=== PATIENT | male | born 1985 | race Hispanic/Latino ===

== ENCOUNTER 2018-09-19 22:23 | Emergency (ER) | payer SELFPAY ==
[2018-09-19] MEDS ORDERED: DEXAMETHASONE 10 MG/ML VIAL ONE (23:33)
--- NOTE | 2018-09-19 23:38 | EDPHYS ---
Physician Documentation [facility] Name: Josh Linda Age: 33 yrs Sex: Male : 1985 Arrival Date: 09/19/2018 Time: 22:26 Bed 30 Private MD: ED Physician Oneal Jacobsen HPI: 09/19 23:09 This 33 yrs old Male presents to ER via Ambulatory with complaints of Rash - jmm poison mo. 23:09 The patient's rash thought to be caused by Dermatitis. The rash is located on the jmm chest, abdomen, right arm and left arm. Onset: The symptoms/episode began/occurred 1 week(s) ago. Associated signs and symptoms: Pertinent positives: itching, Pertinent negatives: difficulty breathing, fever, swelling of lips, swelling of throat, swelling of tongue, vomiting. Treatment given at home: OTC lotion/cream. The patient has not experienced similar symptoms in the past. Historical: - Allergies: 22:41 No Known Allergies; rv - Home Meds: 22:41 None [Active]; rv - PMHx: 22:41 None; rv - PSHx: 22:41 None; rv - Immunization history:: Adult Immunizations up to date. - Social history:: Smoking status: Patient/guardian denies using tobacco, never smoked. - Ebola Screening: : No symptoms or risks identified at this time. ROS: 23:09 Constitutional: Negative for fever, chills, and weight loss, Cardiovascular: Negative jmm for chest pain, palpitations, and edema, Respiratory: Negative for shortness of breath, cough, wheezing, and pleuritic chest pain, Abdomen/GI: Negative for abdominal pain, nausea, vomiting, diarrhea, and constipation. 23:09 Skin: Positive for rash. 23:09 All other systems are negative. Exam: 23:09 Constitutional: This is a well developed, well nourished patient who is awake, alert, jmm and in no acute distress. Head/Face: atraumatic. Eyes: EOMI, no conjunctival erythema appreciated ENT: Moist Mucus Membranes Neck: Trachea midline, Supple Chest/axilla: Normal chest wall appearance and motion. Cardiovascular: Regular rate and rhythm. No edema appreciated Respiratory: Normal respirations, no respiratory distress appreciated Abdomen/GI: Non distended, soft Back: Normal ROM 23:09 Skin: rash consistent with dermatitis noted to the right and left arm and abdomen. 23:09 Neuro: Orientation: is normal, Mentation: is normal, Memory: is normal. 23:09 Psych: Behavior/mood is pleasant, cooperative. Vital Signs: 22:43 BP 135 / 78; Pulse 94; Resp 16; Temp 98.8; Pulse Ox 98% ; Weight 90.72 kg; rv 23:45 BP 122 / 69; Pulse 88; Resp 17 S; Temp 98.5(O); Pulse Ox 99% on R/A; ca1 MDM: 23:08 Patient medically screened. [facility] 23:34 Data reviewed: vital signs, nurses notes. Counseling: I had a detailed discussion with sav the patient and/or guardian regarding: the historical points, exam findings, and any diagnostic results supporting the discharge/admit diagnosis, the need for outpatient follow up, to return to the emergency department if symptoms worsen or persist or if there are any questions or concerns that arise at home. ED course: PE findings appear consistent with contact dermatitis. patient prescribed oral steriods and advised to follow up with pcp. patient was given return precautions. family understood and agrees with the plan of care. . Administered Medications: 23:20 Drug: Dexamethasone 10 mg Route: IM; Site: right deltoid; ca1 23:45 Follow up: Response: No adverse reaction; Marked relief of symptoms ca1 Disposition: 09/19/18 23:37 Discharged to Home. Impression: Contact Dermatitis. - Condition is Stable. - Discharge Instructions: Contact Dermatitis. - Prescriptions for Prednisone 20 mg Oral Tablet - take 3 tablets by ORAL route once daily for 12 days take 3 tabs by mouth daily for 3 days, then take 2 tablets by mouth daily for 3 days, then take 1 tablet by mouth daily for 3 days, then take 1/2 table by mouth daily for 3 days.; 20 tablet. Hydroxyzine HCl 25 mg Oral Tablet - take 1 tablet by ORAL route every 6 hours As needed; 30 tablet. - Medication Reconciliation Form, Thank You Letter, Antibiotic Education, Prescription Opioid Use form. - Follow up: Private Physician; When: 2 - 3 days; Reason: Recheck today's complaints, Continuance of care, Re-evaluation by your physician. Addendum: 09/23/2018 16:37 Co-signature as Attending Physician, Oneal Jacobsen MD I agree with the assessment and t w4 plan of care. Signatures: Austin Woodall PA PA jmm Wadley, Terrence, MD MD tw4 Ye Tavarez, RN RN rv Yu Looney RN RN ca1 Corrections: (The following items were deleted from the chart) 09/19 23:46 23:37 09/19/2018 23:37 Discharged to Home. Impression: Contact Dermatitis. Condition is ca1 Stable. Forms are Medication Reconciliation Form, Thank You Letter, Antibiotic Education, Prescription Opioid Use. Follow up: Private Physician; When: 2 - 3 days; Reason: Recheck today's complaints, Continuance of care, Re-evaluation by your physician. sav
--- NOTE | 2018-09-19 23:38 | ER ---
Nurse's Notes [facility] Name: Josh Linda Age: 33 yrs Sex: Male : 1985 Arrival Date: 09/19/2018 Time: 22:26 Bed 30 Private MD: Diagnosis: Contact Dermatitis Presentation: 09/19 22:38 Presenting complaint: Patient states: HAD EXPOSURE TO POISON BOB AND HAVE THE RASHES rv FOR A WEEK. TRIED TO PUT CREAM AND BENADRYL. DID NOT GET BETTER. Transition of care: patient was not received from another setting of care. Onset of symptoms was September 13, 2018 at 08:00. Risk Assessment: Do you want to hurt yourself or someone else? Patient reports no desire to harm self or others. Initial Sepsis Screen: Does the patient meet any 2 criteria? No. Patient's initial sepsis screen is negative. Does the patient have a suspected source of infection? No. Patient's initial sepsis screen is negative. Care prior to arrival: None. 22:38 Method Of Arrival: Ambulatory rv 22:38 Acuity: MAYANK 4 rv Historical: - Allergies: 22:41 No Known Allergies; rv - Home Meds: 22:41 None [Active]; rv - PMHx: 22:41 None; rv - PSHx: 22:41 None; rv - Immunization history:: Adult Immunizations up to date. - Social history:: Smoking status: Patient/guardian denies using tobacco, never smoked. - Ebola Screening: : No symptoms or risks identified at this time. Screenin:46 Abuse screen: Denies threats or abuse. Denies injuries from another. Nutritional rv screening: No deficits noted. Tuberculosis screening: No symptoms or risk factors identified. Fall Risk None identified. Assessment: 22:45 General: Appears in no apparent distress. comfortable, Behavior is calm, cooperative. rv Pain: Denies pain. Neuro: Level of Consciousness is awake, alert, obeys commands, Oriented to person, place, time, situation. Cardiovascular: Patient's skin is warm and dry. Respiratory: Airway is patent. GI: No signs and/or symptoms were reported involving the gastrointestinal system. : No signs and/or symptoms were reported regarding the genitourinary system. EENT: No signs and/or symptoms were reported regarding the EENT system. Derm: Rash noted that is itchy, red, raised, on neck, chest, abdomen, right arm and left arm. Musculoskeletal: No signs and/or symptoms reported regarding the musculoskeletal system. 23:45 Reassessment: Patient appears in no apparent distress at this time. Patient is alert, ca1 oriented x 3, equal unlabored respirations, skin warm/dry/pink. Patient states feeling better. Vital Signs: 22:43 BP 135 / 78; Pulse 94; Resp 16; Temp 98.8; Pulse Ox 98% ; Weight 90.72 kg; rv 23:45 BP 122 / 69; Pulse 88; Resp 17 S; Temp 98.5(O); Pulse Ox 99% on R/A; ca1 ED Course: 22:26 Patient arrived in ED. ag3 22:37 Ye Tavarez, MICHELE is Primary Nurse. rv 22:40 Triage completed. rv 22:40 Austin Woodall PA is PHCP. [facility] 22:40 Oneal Jacobsen MD is Attending Physician. [facility] 22:46 Patient has correct armband on for positive identification. Bed in low position. Call rv light in reach. Side rails up X 1. Pulse ox on. NIBP on. 22:46 Patient placed in an exam room, on a stretcher, on pulse oximetry, Patient notified of rv wait time. 22:47 No provider procedures requiring assistance completed. rv 23:45 Patient did not have IV access during this emergency room visit. ca1 Administered Medications: 23:20 Drug: Dexamethasone 10 mg Route: IM; Site: right deltoid; ca1 23:45 Follow up: Response: No adverse reaction; Marked relief of symptoms ca1 Outcome: 23:37 Discharge ordered by . [facility] 23:45 Discharged to home ambulatory, with family. ca1 23:45 Condition: stable 23:45 Discharge instructions given to patient, significant other, Instructed on discharge instructions, follow up and referral plans. medication usage, Demonstrated understanding of instructions, follow-up care, medications, Prescriptions given X 2. 23:46 Patient left the ED. ca1 Signatures: Austin Woodall PA PA jmm Vicente, Ronaldo, MICHELE BAUTISTA Krissy Gonzalez 3 Yu Looney RN RN [facility]
== END 2018-09-19 23:46 | disposition home or self-care (01) ==
LOC: ER 22:23
DX: L25.9 Unspecified contact dermatitis, unspecified cause (principal)
CPT/HCPCS: 96372; 99283; J1100

== ENCOUNTER 2020-10-21 20:37 | Emergency (ER) | payer SELFPAY ==
--- NOTE | 2020-10-21 22:14 | RAD REPORT ---
EXAM DESCRIPTION: Sd Fleming (2 Views)10/21/2020 9:58 pm CLINICAL HISTORY: Chest pain COMPARISON: None FINDINGS: The lungs appear clear of acute infiltrate. The heart is normal size IMPRESSION: No acute abnormalities displayed
[2020-10-21] MEDS ORDERED: MORPHINE 4 MG/ML SYR ONE (23:10)
[2020-10-21] MEDS ORDERED: ONDANSETRON 4 MG/2 ML VIAL ONE (23:11)
[2020-10-21 23:32] LABS: Protime INR 1.04
[2020-10-21 23:33] LABS: Absolute Lymphocytes (CBC) 2.5 K/uL (0.7-4.9); Basophils % 0.2 % (0-1.3); Hematocrit 41.5 % (39.6-49.0); Lymphocytes % 29.2 % (15.3-44.8); MPV 9.3 fL (7.6-11.3); RBC Red Blood Cell Count 4.64 M/uL (4.33-5.43)
[2020-10-21 23:39] LABS: ALT/SGPT 273 U/L (12-78); AST/SGOT 120 U/L (15-37); Albumin 4.4 g/dL (3.4-5.0); Alkaline Phosphatase 97 U/L (45-117); BUN Blood Urea Nitrogen 13 mg/dL (7-18); Bicarbonate 26 mmol/L (21-32); Bilirubin Direct 0.1 mg/dL (0-0.2); Bilirubin Total 0.4 mg/dL (0.2-1.0); Glucose Level 96 mg/dL (74-106); Potassium 3.9 mmol/L (3.5-5.1); Sodium Level 139 mmol/L (136-145)
[2020-10-21] MEDS ORDERED: IPRATROPIUM BROM 0.5MG/2.5ML ONE (23:39)
[2020-10-21] MEDS ORDERED: ALBUTEROL 2.5 MG/3 ML NEB SOL ONE (23:39)
--- NOTE | 2020-10-22 02:45 | ER ---
Nurse's Notes [facility] Name: Josh Linda Age: 35 yrs Sex: Male : 1985 Arrival Date: 10/21/2020 Time: 20:42 Bed 5 Private MD: Diagnosis: Fall-Mechanical, from height;Chest Contusion;Abdominal Contusion Presentation: 10/21 20:49 Chief complaint: Patient states: Pt stated on 10/19/20, fell off the roof of [facility] a one story house. Pt stated fell into a hole onto the Left side of the ribs. Pt also c/o difficulty breathing. Coronavirus screen: Client denies travel out of the [place] in the last 14 days. Ebola Screen: Patient negative for fever greater than or equal to 101.5 degrees Fahrenheit, and additional compatible Ebola Virus Disease symptoms. Initial Sepsis Screen: Does the patient meet any 2 criteria? No. Patient's initial sepsis screen is negative. Does the patient have a suspected source of infection? No. Patient's initial sepsis screen is negative. Risk Assessment: Do you want to hurt yourself or someone else? Patient reports no desire to harm self or others. Onset of symptoms was October 19, 2020. 20:49 Method Of Arrival: Ambulatory [facility] 20:49 Acuity: MAYANK 3 1 Triage Assessment: 20:51 General: Appears in no apparent distress. uncomfortable, Behavior is calm, cooperative. vg1 Pain: Complains of pain in left lateral anterior chest Pain currently is 10 out of 10 on a pain scale. 20:51 Respiratory: Breath sounds are diminished in right posterior middle lobe. vg1 Historical: - Allergies: 20:51 No Known Allergies; vg1 - Home Meds: 20:51 None [Active]; vg1 - PMHx: 20:51 None; vg1 - Immunization history:: Adult Immunizations up to date. - Social history:: Smoking status: Patient denies any tobacco usage or history of. Screenin:28 Abuse screen: Denies threats or abuse. Denies injuries from another. Nutritional rr5 screening: No deficits noted. Tuberculosis screening: No symptoms or risk factors identified. Fall Risk Fall in past 12 months (25 points). Total Sahni Fall Scale indicates Low Risk Score (25-44 pts). Fall prevention measures have been instituted. Side Rails Up X 2 Frequent Obs/Assesments occuring Family Present and informed to notify staff if they need to leave bedside As available Patient and Family Educated on Fall Prevention Program and strategies. Assessment: 21:28 General: Appears in no apparent distress. uncomfortable, Behavior is calm, cooperative, rr5 appropriate for age. Pain: Complains of pain in left lateral anterior chest Pain currently is 10 out of 10 on a pain scale. Quality of pain is described as aching, Pain began suddenly, Is intermittent. Neuro: Level of Consciousness is awake, alert, obeys commands, Oriented to person, place, time. Cardiovascular: Capillary refill < 3 seconds Patient's skin is warm and dry. Respiratory: Airway is patent Respiratory effort is even, unlabored, Respiratory pattern is regular, symmetrical. Derm: Skin is intact, is healthy with good turgor, Skin temperature is warm. Musculoskeletal: Circulation, motion, and sensation intact. Reports pain in left lateral anterior chest. 22:27 Reassessment: Patient and/or family updated on plan of care and expected duration. Pain ak2 level reassessed. 23:30 Reassessment: Patient appears in no apparent distress at this time. Patient is alert, rr5 oriented x 3, equal unlabored respirations, skin warm/dry/pink. 10/22 00:20 Reassessment: Patient appears in no apparent distress at this time. Patient is alert, rr5 oriented x 3, equal unlabored respirations, skin warm/dry/pink. for review by ED provider. 01:09 Reassessment: Patient appears in no apparent distress at this time. Patient is alert, rr5 oriented x 3, equal unlabored respirations, skin warm/dry/pink. awaiting for CT result Patient states feeling better. Patient states symptoms have improved. 02:44 Reassessment: awaiting for ED provider re evaluation. rr5 02:51 Reassessment: Patient appears in no apparent distress at this time. Patient is alert, rr5 oriented x 3, equal unlabored respirations, skin warm/dry/pink. discharge instruction given and explained without complaints made. Vital Signs: 10/21 20:49 BP 178 / 109; Pulse 90; Resp 18; Temp 99.0(O); Pulse Ox 99% ; Weight 88.45 kg; Height 6 vg1 ft. 2 in. (187.96 cm); Pain 10/10; 22:27 BP 143 / 84; Pulse 71; Resp 16; Pulse Ox 98% on R/A; ak2 23:30 BP 141 / 89; Pulse 79; Resp 15; Pulse Ox 99% ; rr5 07 00:20 BP 132 / 80; Pulse 70; Resp 19; Pulse Ox 98% ; rr5 01:50 BP 126 / 80; Pulse 76; Resp 19; Pulse Ox 98% ; rr5 10/21 20:49 Body Mass Index 25.04 (88.45 kg, 187.96 cm) vg1 ED Course: 10/21 20:42 Patient arrived in ED. es 20:51 Triage completed. vg1 20:51 Arm band placed on Patient placed Patient notified of wait time. vg1 21:09 Yovanny Aguilar, RN is Primary Nurse. rr5 21:29 Patient has correct armband on for positive identification. Bed in low position. Call rr5 light in reach. Pulse ox on. NIBP on. 21:46 Hernandez Clark MD is Attending Physician. mh7 21:57 Chest Pa And Lat (2 Views) XRAY In Process Unspecified. EDMS 10/22 00:00 Inserted saline lock: 20 gauge in right upper arm, using aseptic technique. Blood rr5 collected. 00:07 CT Chest, Abdomen, Pelvis - W/Contrast In Process Unspecified. EDMS 01:50 Awaiting re-evaluation by ER provider. rr5 02:52 No provider procedures requiring assistance completed. IV discontinued, intact, rr5 bleeding controlled, No redness/swelling at site. Pressure dressing applied. Administered Medications: 10/21 23:28 Drug: Zofran (Ondansetron) 4 mg Route: IVP; Site: right antecubital; ak2 10/22 00:20 Follow up: Response: No adverse reaction rr5 10/21 23:29 Drug: morphine 4 mg Route: IVP; Site: right antecubital; ak2 10/22 00:20 Follow up: Response: No adverse reaction; Pain is decreased; RASS: Alert and Calm (0) rr5 Outcome: 02:45 Discharge ordered by . mh7 02:52 Discharged to home ambulatory, with family. rr5 02:52 Condition: stable 02:52 Discharge instructions given to patient, family, Instructed on discharge instructions, follow up and referral plans. medication usage, Demonstrated understanding of instructions, follow-up care, medications, Prescriptions given X 1. 02:53 Patient left the ED. rr5 Signatures: Dispatcher [employer] [place] Ochoa Raymond, RN RN rr5 Jessa Linda RN RN vg1 Hernandez Clark MD MD 7 Krishna Meraz2 Corrections: (The following items were deleted from the chart) 01:11 10/21 23:00 Inserted saline lock: 20 gauge in right upper arm, using aseptic technique. rr5 Blood collected. rr5 10/22 01:55 01:50 Awaiting ED provider evaluation, rr5 rr5
--- NOTE | 2020-10-22 02:45 | EDPHYS ---
Physician Documentation [facility] Name: Josh Linda Age: 35 yrs Sex: Male : 1985 Arrival Date: 10/21/2020 Time: 20:42 Bed 5 Private MD: ED Physician Hernandez Clark HPI: 10/21 23:48 This 35 yrs old Male presents to ER via Ambulatory with complaints of Fall mh7 Injury. 23:49 Details of fall: The patient fell from a height, off a roof, approximately 10 feet. mh7 Onset: The symptoms/episode began/occurred 2 day(s) ago. Associated injuries: The patient sustained injury to the chest, specifically the left lateral anterior chest, pain with breathing, tenderness, injury to the abdomen, specifically the left upper quadrant, tenderness. Severity of symptoms: At their worst the symptoms were moderate, earlier today, in the emergency department the symptoms are unchanged. Historical: - Allergies: 20:51 No Known Allergies; vg1 - Home Meds: 20:51 None [Active]; vg1 - PMHx: 20:51 None; vg1 - Immunization history:: Adult Immunizations up to date. - Social history:: Smoking status: Patient denies any tobacco usage or history of. ROS: 23:49 Constitutional: Negative for fever, chills, and weight loss, Eyes: Negative for injury, mh7 pain, redness, and discharge, ENT: Negative for injury, pain, and discharge, Neck: Negative for injury, pain, and swelling, Respiratory: Negative for shortness of breath, cough, wheezing, and pleuritic chest pain, Back: Negative for injury and pain, : Negative for injury, bleeding, discharge, and swelling, MS/Extremity: Negative for injury and deformity, Skin: Negative for injury, rash, and discoloration, Neuro: Negative for headache, weakness, numbness, tingling, and seizure, Psych: Negative for depression, anxiety, suicide ideation, homicidal ideation, and hallucinations, Allergy/Immunology: Negative for hives, rash, and allergies, Endocrine: Negative for neck swelling, polydipsia, polyuria, polyphagia, and marked weight changes, Hematologic/Lymphatic: Negative for swollen nodes, abnormal bleeding, and unusual bruising. Exam: 23:49 Constitutional: This is a well developed, well nourished patient who is awake, alert, mh7 and in no acute distress. Head/Face: Normocephalic, atraumatic. Eyes: Pupils equal round and reactive to light, extra-ocular motions intact. Lids and lashes normal. Conjunctiva and sclera are non-icteric and not injected. Cornea within normal limits. Periorbital areas with no swelling, redness, or edema. Neck: Trachea midline, no thyromegaly or masses palpated, and no cervical lymphadenopathy. Supple, full range of motion without nuchal rigidity, or vertebral point tenderness. No Meningismus. 23:49 Cardiovascular: Regular rate and rhythm with a normal S1 and S2. No gallops, murmurs, or rubs. Normal PMI, no JVD. No pulse deficits. Respiratory: Lungs have equal breath sounds bilaterally, clear to auscultation and percussion. No rales, rhonchi or wheezes noted. No increased work of breathing, no retractions or nasal flaring. 23:49 Back: No spinal tenderness. No costovertebral tenderness. Full range of motion. Skin: Warm, dry with normal turgor. Normal color with no rashes, no lesions, and no evidence of cellulitis. MS/ Extremity: Pulses equal, no cyanosis. Neurovascular intact. Full, normal range of motion. Neuro: Awake and alert, GCS 15, oriented to person, place, time, and situation. Cranial nerves II-XII grossly intact. Motor strength 5/5 in all extremities. Sensory grossly intact. Cerebellar exam normal. Normal gait. Psych: Awake, alert, with orientation to person, place and time. Behavior, mood, and affect are within normal limits. 23:49 Chest/axilla: Inspection: normal, Palpation: tenderness, that is moderate, of the left lateral anterior chest, that totally reproduces the patient's complaints, Axilla: are normal, Lymph nodes: lymphadenopathy is not appreciated. 23:49 Abdomen/GI: Inspection: abdomen appears normal, Bowel sounds: normal, in all quadrants, Palpation: moderate abdominal tenderness, in the left upper quadrant, mass, is not appreciated, rebound tenderness, is not appreciated, voluntary guarding, is not appreciated, involuntary guarding, is not appreciated, no appreciated organomegaly, Rectal exam: the exam is deferred, because of patient request, Indicators: McBurney's point is not tender, Hernandez's sign is negative, Rovsing's sign is negative, Obturator sign is negative, Psoas sign is negative, Liver: no appreciated palpable abnormalities, Hernia: not appreciated. Vital Signs: 20:49 BP 178 / 109; Pulse 90; Resp 18; Temp 99.0(O); Pulse Ox 99% ; Weight 88.45 kg; Height 6 vg1 ft. 2 in. (187.96 cm); Pain 10/10; 22:27 BP 143 / 84; Pulse 71; Resp 16; Pulse Ox 98% on R/A; ak2 23:30 BP 141 / 89; Pulse 79; Resp 15; Pulse Ox 99% ; rr5 10/22 00:20 BP 132 / 80; Pulse 70; Resp 19; Pulse Ox 98% ; rr5 01:50 BP 126 / 80; Pulse 76; Resp 19; Pulse Ox 98% ; rr5 10/21 20:49 Body Mass Index 25.04 (88.45 kg, 187.96 cm) vg1 MDM: 02:43 Differential diagnosis: abrasion, contusion, fracture, multiple trauma. Data reviewed: [facility] vital signs, nurses notes, lab test result(s), CBC, electrolytes, radiologic studies, CT scan, plain films. Data interpreted: Pulse oximetry: on room air is 98 %. Interpretation: normal. Counseling: I had a detailed discussion with the patient and/or guardian regarding: the historical points, exam findings, and any diagnostic results supporting the discharge/admit diagnosis, lab results, radiology results, the need for outpatient follow up, to return to the emergency department if symptoms worsen or persist or if there are any questions or concerns that arise at home. Response to treatment: the patient's symptoms have markedly improved after treatment. 02:45 Patient medically screened. [facility] 10/21 22:44 Order name: Basic Metabolic Panel [facility] 10/21 22:44 Order name: CBC with Diff [facility] 10/21 22:44 Order name: LFT's; Complete Time: 02:33 [facility] 10/21 22:44 Order name: Protime (+inr); Complete Time: 02:33 [facility] 10/21 22:44 Order name: Ptt, Activated; Complete Time: 02:33 [facility] 10/21 21:26 Order name: Chest Pa And Lat (2 Views) XRAY; Complete Time: 22:33 rr5 10/21 22:44 Order name: Labs collected and sent; Complete Time: 22:50 [facility] 10/21 22:44 Order name: CT Chest, Abdomen, Pelvis - W/Contrast [facility] 10/21 22:45 Order name: Basic Metabolic Panel; Complete Time: 02:33 EDMS 10/21 22:45 Order name: CBC with Automated Diff; Complete Time: 02:33 EDMS Administered Medications: 10/21 23:28 Drug: Zofran (Ondansetron) 4 mg Route: IVP; Site: right antecubital; ma2 10/22 00:20 Follow up: Response: No adverse reaction [facility] 10/21 23:29 Drug: morphine 4 mg Route: IVP; Site: right antecubital; ma2 10/22 00:20 Follow up: Response: No adverse reaction; Pain is decreased; RASS: Alert and Calm (0) rr5 Disposition Summary: 10/22/20 02:45 Discharge Ordered Location: Home [facility] Problem: new [facility] Symptoms: have improved [facility] Condition: Stable [facility] Diagnosis - Fall-Mechanical, from height 7 - Chest Contusion [facility] - Abdominal Contusion [facility] Followup: [facility] - With: Private Physician - When: 1 - 2 days - Reason: Worsening of condition, Recheck today's complaints, Continuance of care, Re-evaluation by your physician Discharge Instructions: - Discharge Summary Sheet [facility] - Blunt Abdominal Trauma [facility] - Contusion, [id number] [facility] - Blunt Chest Trauma [facility] Forms: - Work release form rr5 - Medication Reconciliation Form [facility] - Thank You Letter [facility] - Antibiotic Education [facility] - Prescription Opioid Use [facility] - Family Work Release rr5 Prescriptions: - Tramadol 50 mg Oral Tablet - take 1 tablet by ORAL route every 8 hours as needed; 12 tablet; Refills: 0, 7 Product Selection Permitted Signatures: Dispatcher [employer] Jessa Chapman RN RN 1 Hernandez Clark MD MD 7 Krishna Meraz ma2 Yovanny Aguilar RN rr5
[2020-10-22 03:20] VITALS: TEMP 99
[2020-10-22 03:25] VITALS: O2SAT 98
[2020-10-22 03:26] VITALS: BP 126/80
--- NOTE | 2020-10-22 22:24 | RAD REPORT ---
EXAM DESCRIPTION: CT - Chest Abdomen Pelvis W Cont - 10/22/2020 6:38 am COMPARISON: None. CLINICAL HISTORY: TRAUMA TECHNIQUE: CT images through the chest, abdomen, and pelvis following IV contrast. Multiplanar refor mats. Automated exposure control was utilized on this examination as a dose lowering technique. CT CHEST FINDINGS: Heart and mediastinum: Heart size is normal. No lymphadenopathy. Thyroid gland: Visualized portions are normal. Lungs: Clear. Airways: No filling defects. No bronchiectasis. Pleura: No pneumothorax. No significant pleural effusion. Musculoskeletal and soft tissues: Within normal limits for age. CHEST IMPRESSION: No acute chest process. CT ABDOMEN & PELVIS FINDINGS: Liver: Normal. Gallbladder and biliary: Normal gallbladder. Unremarkable biliary tree. Pancreas: Normal. Spleen: Normal. Kidneys and adrenal glands: Normal adrenal glands. Normal kidneys Stomach and Small Bowel: The stomach and small bowel are normal. Urinary bladder: Normal. Prostate/Male Urogenital: Normal. Colon and Appendix: The colon is unremarkable. No evidence of appendicitis. Peritoneal cavity: No ascites or free air. Retroperitoneum and lymph nodes: Normal. Vascular: Normal. Musculoskeletal and soft tissues: Soft tissues are unremarkable. No aggressive bone lesions. No com pression fracture. ABDOMEN AND PELVIS IMPRESSION: No acute intra-abdominal abnormality. Electronically signed by: Tab Gomez MD 10/22/2020 1:01 AM CDT Due to temporary technical issues with the PACS/Fluency reporting system, reports are being signed by the in house radiologists without review as a courtesy to insure prompt reporting. The interpreting radiologist is fully responsible for the content of the report.
== END 2020-10-22 02:53 | disposition home or self-care (01) ==
LOC: ER 20:37
DX: S20.219A Contusion of unspecified front wall of thorax, initial encounter (principal); W13.2XXA Fall from, out of or through roof, initial encounter
CPT/HCPCS: 36415; 71046; 71260; 74177; 80048; 80076; 85025; 85610; 85730; 96374; 96375; 99284; J2405; Q9967

== ENCOUNTER 2020-10-26 07:57 | Emergency (ER) | payer SELFPAY ==
--- NOTE | 2020-10-26 09:57 | EDPHYS ---
Physician Documentation [facility] – [place], [place] Name: Josh Linda Age: 35 yrs Sex: Male : 1985 Arrival Date: 10/26/2020 Time: 08:07 Bed 12 Private MD: ED Physician Tramaine Montero HPI: 10/26 08:31 This 35 yrs old Male presents to ER via Ambulatory with complaints of Finger kb Injury. 08:31 The patient or guardian reports decreased range of motion, injury, pain, swelling, kb tenderness. The complaints affect the right ring finger. Context: The problem was sustained at home, resulted from a crush injury, dish washer. Onset: The symptoms/episode began/occurred last night. Modifying factors: The symptoms are alleviated by nothing, the symptoms are aggravated by nothing. Associated signs and symptoms: The patient has no apparent associated signs or symptoms. Severity of symptoms: At their worst the symptoms were moderate, in the emergency department the symptoms are unchanged. The patient has not experienced similar symptoms in the past. The patient has not recently seen a physician. reports pt was turning off the dish washer and it smashed his finger. Occurred last night. This morning finger is bruised and swollen. Historical: - Allergies: 08:25 No Known Allergies; iw - Home Meds: 08:25 Tramadol Oral [Active]; iw - PMHx: 08:25 None; iw - PSHx: 08:25 None; iw - Immunization history:: Adult Immunizations Last tetanus immunization: not immunized. - Social history:: Smoking status: Patient denies any tobacco usage or history of. ROS: 08:34 Constitutional: Negative for fever, chills, and weight loss. kb 08:34 MS/extremity: Positive for decreased range of motion, ecchymosis, pain, swelling, tenderness, of the right ring finger. 08:34 Skin: Positive for ecchymosis, swelling, of the right ring finger. 08:34 All other systems are negative. Exam: 08:34 Constitutional: This is a well developed, well nourished patient who is awake, alert, kb and in no acute distress. Head/Face: Normocephalic, atraumatic. ENT: Moist Mucous membranes Respiratory: Respirations even and unlabored. No increased work of breathing, no retractions or nasal flaring. Neuro: Awake and alert, GCS 15, oriented to person, place, time, and situation. Moves all extremities. Normal gait. Psych: Awake, alert, with orientation to person, place and time. Behavior, mood, and affect are within normal limits. 08:34 Musculoskeletal/extremity: Extremities: grossly normal except: noted in the right ring finger: decreased ROM, ecchymosis, pain, swelling, tenderness, ROM: limited active range of motion, in the right ring finger, Circulation is intact in all extremities. Sensation intact. 08:34 Skin: Appearance: normal except for affected area, ecchymosis, noted on the, right ring finger, that are moderate, swelling, noted on the right ring finger, that are moderate. Vital Signs: 08:23 BP 146 / 91; Pulse 65; Resp 16; Temp 99.4; Pulse Ox 99% on R/A; Pain 10/10; iw MDM: 08:29 Patient medically screened. kb 08:33 Data reviewed: vital signs, nurses notes. Data interpreted: Pulse oximetry: on room air kb is 99 %. Interpretation: normal. 09:55 Test interpretation: by ED physician or midlevel provider: plain radiologic studies, kb displaced fracture distal phalanx right ring finger. Counseling: I had a detailed discussion with the patient and/or guardian regarding: the historical points, exam findings, and any diagnostic results supporting the discharge/admit diagnosis, radiology results, the need for outpatient follow up, a orthopedic surgeon, to return to the emergency department if symptoms worsen or persist or if there are any questions or concerns that arise at home. 10/26 08:31 Order name: Hand Right 3 View XRAY 10/26 09:56 Order name: Finger Splint; Complete Time: 10:19 kb Administered Medications: 10:27 Drug: HYDROcodone-acetaminophen 5 mg-325 mg 1 tabs Route: PO; iw Disposition: 15:02 Co-signature as Attending Physician, Tramaine Montero MD I agree with the assessment and kdr plan of care. Disposition Summary: 10/26/20 09:56 Discharge Ordered Location: Home Condition: Stable Diagnosis - Displaced fracture of distal phalanx of right ring finger kb Followup: kb - With: Emergency Department - When: As needed - Reason: Worsening of condition Followup: kb - With: Private Physician - When: 2 - 3 days - Reason: Recheck today's complaints, Continuance of care, Re-evaluation by your physician Discharge Instructions: - Discharge Summary Sheet kb - Finger Fracture, Adult, [id number] kb Forms: - Medication Reconciliation Form kb - Thank You Letter kb - Antibiotic Education kb - Prescription Opioid Use kb Signatures: Dispatcher [employer] EDPeyton Slater, ALFAC ZAN-Tramaine Narvaez MD MD kdr Williams, Irene RN RN iw
--- NOTE | 2020-10-26 09:57 | ER ---
Nurse's Notes [facility] Name: Josh Linda Age: 35 yrs Sex: Male : 1985 Arrival Date: 10/26/2020 Time: 08:07 Bed 12 Private MD: Diagnosis: Displaced fracture of distal phalanx of right ring finger Presentation: 10/26 08:23 Chief complaint: Spouse and/or significant other states: last night he was pressure iw washing and the machine caught his right ring finger, now is swollen and bruised, think sit is broken. Coronavirus screen: At this time, the client does not indicate any symptoms associated with coronavirus-19. Ebola Screen: Patient negative for fever greater than or equal to 101.5 degrees Fahrenheit, and additional compatible Ebola Virus Disease symptoms Patient denies exposure to infectious person. Patient denies travel to an Ebola-affected area in the 21 days before illness onset. No symptoms or risks identified at this time. Initial Sepsis Screen: Does the patient meet any 2 criteria? No. Patient's initial sepsis screen is negative. Does the patient have a suspected source of infection? No. Patient's initial sepsis screen is negative. Risk Assessment: Do you want to hurt yourself or someone else? Patient reports no desire to harm self or others. Onset of symptoms was October 25, 2020. 08:23 Method Of Arrival: Ambulatory iw 08:23 Acuity: MAYANK 4 iw Historical: - Allergies: 08:25 No Known Allergies; iw - Home Meds: 08:25 Tramadol Oral [Active]; iw - PMHx: 08:25 None; iw - PSHx: 08:25 None; iw - Immunization history:: Adult Immunizations Last tetanus immunization: not immunized. - Social history:: Smoking status: Patient denies any tobacco usage or history of. Screenin:47 Abuse screen: Denies threats or abuse. Denies injuries from another. Nutritional iw screening: No deficits noted. Tuberculosis screening: No symptoms or risk factors identified. Fall Risk None identified. Assessment: 09:00 General: Appears in no apparent distress. Behavior is calm, cooperative. Pain: iw Complains of pain in right hand and right ring finger. Neuro: Level of Consciousness is awake, alert, obeys commands, Oriented to person, place, time, situation, Moves all extremities. Full function. Cardiovascular: Patient's skin is warm and dry. Respiratory: Respiratory effort is even, unlabored, Respiratory pattern is regular, symmetrical. Derm: Skin is intact, is healthy with good turgor. Musculoskeletal: Range of motion: limited in DIP of right ring finger, PIP of right ring finger and MCP of right ring finger Swelling present in right ring finger. Vital Signs: 08:23 BP 146 / 91; Pulse 65; Resp 16; Temp 99.4; Pulse Ox 99% on R/A; Pain 10/10; iw ED Course: 08:07 Patient arrived in ED. as 08:25 Triage completed. iw 08:26 Arm band placed on. iw 08:29 Peyton Logan FNP-C is PHCP. kb 08:29 Tramaine Montero MD is Attending Physician. kb 09:46 Katie Messer, RN is Primary Nurse. iw 10:06 Hand Right 3 View XRAY In Process Unspecified. EDMS Administered Medications: 10:27 Drug: HYDROcodone-acetaminophen 5 mg-325 mg 1 tabs Route: PO; iw Outcome: 09:56 Discharge ordered by . kb 10:27 Patient left the ED. iw Signatures: Dispatcher [employer] EDMS Peyton Logan FNP-C FNP-Aleah Gonzales as Katie Messer, RN RN iw
[2020-10-26 10:44] VITALS: BP 146/91; TEMP 99.4; O2SAT 99
[2020-10-26] MEDS ORDERED: HYDROCODONE/APAP 5/325 MG TAB ONE (10:44)
--- NOTE | 2020-10-26 11:00 | RAD REPORT ---
EXAM DESCRIPTION: RAD - Hand Right 3 View - 10/26/2020 10:07 am CLINICAL HISTORY: Pain;Swelling, blunt force trauma fourth digit COMPARISON: No comparisonsdelete select FINDINGS: Transverse fracture is present through the fourth distal phalanx. The articular surface is not involved. There is minimal 1- 2 mm of distraction along the ventral margin of the fracture. No a ngulation deformity. Proximal and middle phalanges of the fourth digit are without acute finding. Sof t tissue swelling is present. Remainder the hand shows no acute or suspicious finding. No foreign body. IMPRESSION: Right hand fourth distal phalanx fracture as detailed.
== END 2020-10-26 10:27 | disposition home or self-care (01) ==
LOC: ER 07:57
PROC: 2W3JX1Z Immobilization of Right Finger using Splint (ICD-10-PCS; principal; 2020-10-26)
DX: S62.634A Displaced fracture of distal phalanx of right ring finger, initial encounter for closed fracture (principal); W31.89XA Contact with other specified machinery, initial encounter; Y93.89 Activity, other specified; Y92.009 Unspecified place in unspecified non-institutional (private) residence as the place of occurrence of the external cause
CPT/HCPCS: 99283